=== PATIENT | female | born 1980 | race Caucasian/White ===

== ENCOUNTER 2021-04-08 13:25 | Emergency (ER) | payer OTHER, SELFPAY ==
[2021-04-08 13:37] VITALS: BP 104/70; PULSE 88; RESP 16; TEMP 36.9; O2SAT 98; BMI 29.0
[2021-04-08 14:37] LABS: COVID-19 Test Positive (Negative); IDNOW Serial# 9DD0AD1C
--- NOTE | 2021-04-08 14:50 | ED_ITS ---
HPI - General Adult General Chief complaint: Upper Respiratory Symptoms Stated complaint: cough Time Seen by Provider: 04/08/21 14:00 History of Present Illness HPI narrative: Patient's main complaint is runny nose and mild cough for 2-3 days, no shortness of breath Patient also complains of left-sided low back pain worse with movement time several months Related Data Previous Rx's Medication Instructions Recorded cyclobenzaprine 5 mg tablet 5 mg PO TID PRN #14 tab 04/08/21 ibuprofen 600 mg tablet 600 mg PO Q6H PRN #20 tab 04/08/21 Allergies Allergy/AdvReac Type Severity Reaction Status Date / Time No Known Allergies Allergy Verified 04/08/21 13:40 Review of Systems Review of Systems: Positive for runny nose and cough for 2-3 days Also positive for low back pain times months worse with movement Negatives are no fever no chills no dizziness no fainting no feeling faint no headache no neck pain no stiff neck no numbness weakness or tingling no chest pain no shortness of breath no abdominal pain no nausea vomiting or diarrhea, no dysuria no incontinence no changes to bowel or bladder no skin rash no muscle weakness no loss of sensation Yes all other systems are reviewed and are negative PMFSH Past Medical History Source: nursing notes reviewed Medical History (Updated 04/09/21 @ 00:02 by Jacky Arauz) Arthritis Asthma Social History Social History Advance Directives: No Advance Directives Information Provided: No Physical Exam Vital Signs: Vital Signs: Last Vital Signs Temp 98.4 F 04/08/21 13:37 Pulse 88 04/08/21 13:37 Resp 16 04/08/21 13:37 BP 104/70 04/08/21 13:37 Pulse Ox 98 04/08/21 13:37 Body Mass Index 29.0 General appearance no acute distress The head is normocephalic atraumatic The pharynx is clear with no redness swelling or exudate The neck is supple Chest clear to auscultation bilateral Heart no murmur Abdomen soft nontender The back had lower lumbar paraspinal tenderness, no bony tenderness no CVA tenderness, pain is reproduced with movement, the skin was normal Extremities full range of motion x4 Neuro no focal motor or sensory deficit Skin no rash Course Course Course Narrative: Well-appearing patient tested positive for COVID, no shortness of breath or difficulty breathing, tolerates p.o. The patient's ongoing low back pain with movement had no evidence of any neurologic deficit no changes to bowel or bladder no fever and is discharged with Motrin and muscle relaxer for musculoskeletal back pain and advised to foll ow with primary doctor Medical Decision Making Lab Data Labs: Lab Results 04/08/21 Range/Units 14:15 COVID-19 ([facility]) Positive A (Negative) COVID-19 Clin Com See Note Discharge Plan Discharge Clinical Impression: COVID-19, Back pain Patient Disposition: Home, Self-Care Additional Instructions: COVID testing was positive Be careful to wear mask and keep a distance from others Return to the ER any time any worse condition or any concerns The back pain is probably from inflamed muscles in her back, you can use Motrin if needed and if you feel the back is cramping you can try the muscle relaxer Follow with primary doctor when you have recovered from COVID for further evaluation and possible physical therapy Prescriptions: New ibuprofen 600 mg tablet 600 mg PO Q6H PRN (Reason: pain) Qty: 20 RF: 0 cyclobenzaprine 5 mg tablet 5 mg PO TID PRN (Reason: muscle spasm) Qty: 14 RF: 0 Interventions: ED Discharge Assessment Last Done: 04/08/21 15:01 Discharge Date/Time: 04/08/21 15:02
== END 2021-04-08 15:02 | disposition home or self-care (01) ==
PROVIDERS: Physician Assistant Medical; Emergency Provider Internal Medicine; PCP Family Medicine
DX: U07.1 COVID-19 (principal)
CPT/HCPCS: 36415; 87635; 99283

== ENCOUNTER 2021-08-23 13:54 | Emergency (ER) | payer OTHER, SELFPAY ==
[2021-08-23 15:05] VITALS: BP 129/87; PULSE 83; RESP 18; TEMP 36.6; O2SAT 98; BMI 28.3
--- NOTE | 2021-08-23 15:37 | ED_ITS ---
HPI - URI/Sore Throat General Chief Complaint: Upper Respiratory Symptoms Stated Complaint: sore throat cough Time Seen by Provider: 08/23/21 15:37 Source: patient and family Mode of arrival: ambulatory Limitations: language barrier (Azeri-speaking) History of Present Illness HPI Narrative: 41-year-old female who is not vaccinated to COVID-19 presenting to the ED with her sons and her daughter her son just tested positive for COVID. Her daughter and her other son do not have any symptoms. She reports body aches, sore throat, dry cough, nasal congestion/rhinorrhea, sore throat and resolved nausea/vomiting/diarrhea that occurred 3 days ago. She reports she is now tolerating p.o.. She denies any other symptoms. MD elicited complaint: cough, sore throat, rhinorrhea and nasal congestion Onset (ago): day(s) (2) Consistency: constant and progressively worsening Severity: mild Description of mucous: clear, watery and yellow Able to tolerate fluids by mouth: Yes Exacerbating factors: swallowing Relieving factors: nothing Context: sick contacts (Patient recently traveled with her family to [place] and her son just tested positive to COVID) and recent travel Associated symptoms: other (Patient reports approximately 3 days ago she had nausea/vomiting/diarrhea which has resolved and she is now tolerating p.o.) Treatments prior to arrival: none Related Data Previous Rx's Medication Instructions Recorded cyclobenzaprine 5 mg tablet 5 mg PO TID PRN #14 tab 04/08/21 ibuprofen 600 mg tablet 600 mg PO Q6H PRN #20 tab 04/08/21 azithromycin 250 mg tablet See Rx Instructions .ROUTE 08/23/21 .COMPLEX #6 tab Allergies Allergy/AdvReac Type Severity Reaction Status Date / Time No Known Allergies Allergy Verified 08/23/21 15:05 Review of Systems Review of Systems: Constitutional : Positive chills/fatigue/malaise No Weight loss, No Fever, No Night Sweats ENT/Mouth : Positive sore throat/nasal congestion/rhinorrhea, No Hearing loss, No Sinus Pain, No Hoarseness, No Swallowing Difficulty Eyes: No Eye Pain, No Swelling, No Redness, No Foreign Body, No Discharge, No Vision Changes Cardiovascular : No Chest Pain, No SOB, No Dyspnea on Exertion, No Orthopnea, No Edema, No Palpitations Respiratory : Positive Cough, No Sputum, No Wheezing, No Smoke Exposure, No Dyspnea Gastrointestinal : No Nausea, No Vomiting, No Diarrhea, No Constipation, No abdominal Pain, No Hematochezia, No Melena Genitourinary : no irregular bleeding, No Dysuria, No Urinary Frequency, No Hematuria, No Urinary Incontinence, No Urgency, No Flank Pain, No Urinary Flow Changes, No Hesitancy Musculoskeletal : No joint pain, positive Myalgias, No Joint Swelling Skin : No Skin Lesions, No rash Neuro : No Weakness, No Numbness, No Paresthesias, No Loss of Consciousness, No Dizziness, No Headache Psych : No Anxiety/Panic, No Depression, No SI/HI/AH/VH, No Social Issues, Heme/Lymph: No Bruising, No Bleeding,No Lymphadenopathy Endocrine : No Polyuria, No Polydipsia, No Temperature Intolerance Yes all other systems are reviewed and are negative [facility] Past Medical History Attestation statement: The following information was validated with the patient. Medical History Arthritis Asthma Social History Social History Advance Directives: No Advance Directives Information Provided: No Patient : No Physical Exam Vital Signs: Vital Signs: Last Vital Signs Temp 97.8 F 08/23/21 15:05 Pulse 83 08/23/21 15:05 Resp 18 08/23/21 15:05 BP 129/87 08/23/21 15:05 Pulse Ox 98 08/23/21 15:05 BMI result Body Mass Index 28.3 vital signs have been reviewed as normal and appeared to be correct. Blood pressure normal. Heart rate normal. Respiration rate normal. Temperature normal. Oxygen saturation normal. Appearance: Alert. Oriented X3. No acute distress. Head: Normal external exam. Normocephalic. Atraumatic. Eyes: PERRLA. EOMI. Conjunctiva and sclera normal. Eyelids normal. ENT: EAC normal. TM's Normal. Pharynx normal. Uvula midline. Moist mucous membranes. No trismus noted. No drooling noted. No muffled voice noted. Neck: Normal inspection. Neck supple. FROM. No adenopathy. Thyroid Normal. No meningeal signs. No neck mass noted. CVS: Normal heart rate and rhythm. Heart sound normal. Pulses normal throughout. No murmurs/rales/gallops. Respiratory: No respiratory distress. Painless inspiration. Breath sounds normal. No wheezes/rales/rhonchi noted. Chest nontender. No accessory muscle usage noted or decreased air movement noted. Abdomen: Soft and nontender. Bowel sounds normal in all 4 quadrants. No distention noted. No organomegaly noted. No visible injury noted. Back: Full range of motion noted. No rashes/lesion/induration/fluctuance or signs of infection noted. Skin: Skin warm and dry. Normal skin color. Normal skin turgor. No rashes/lesions/lacerations noted. Extremities: Extremities exhibit normal range of motion. Extremities nontender. Neuro: Oriented X 3. No motor deficit. No sensory deficit. Reflexes normal. Normal steady gait. No focal neuro deficits noted. Vascular: + radial pulses/+ 2 distal pedal pulses/+2 dorsalis pedis b/l. Normal cap refill. No cyanosis noted to upper extremity nails and lower extremity toes nails. Course Course Course Narrative: 41-year-old female came out negative for COVID although her son tested positive and she recently traveled and has symptoms therefore explained to the patient that most likely she had a false negative. Will DC home with instructions to follow CDC guidelines to self isolate and to return if any new or worsening symptoms. Patient understands agrees with this plan. MDM - URI/Sore Throat Medical Records Attestation: I reviewed the patient's medical records. Lab Data Attestation: I reviewed the patient's lab results. Labs: Lab Results 08/23/21 Range/Units 15:31 COVID-19 ([facility]) Negative (Negative) COVID-19 Clin Com See Note Discharge Plan Discharge Clinical Impression: Acute viral syndrome, Close exposure to 2019-nCoV Patient Disposition: Home, Self-Care Instructions: Viral Syndrome (ED), COVID-19 (Coronavirus Disease 2019) (ED) Additional Instructions: Please self isolate per CDC guidelines. Return if any new or worsening symptoms. Monitor oxygen levels. Prescriptions: New azithromycin 250 mg tablet See Rx Instructions .ROUTE .COMPLEX Qty: 6 RF: 0 No Action ibuprofen 600 mg tablet 600 mg PO Q6H PRN (Reason: pain) Qty: 20 RF: 0 cyclobenzaprine 5 mg tablet 5 mg PO TID PRN (Reason: muscle spasm) Qty: 14 RF: 0 Referrals: Jamir Zapien MD [Primary Care Provider] - 2 days Stand Alone Forms: Work/School Release Print Language: Azeri
[2021-08-23 15:53] LABS: COVID-19 Test Negative (Negative); IDNOW Serial# 9DD0AD1C
== END 2021-08-23 16:05 | disposition home or self-care (01) ==
PROVIDERS: Emergency Provider Emergency Medicine; PCP Internal Medicine
DX: B34.9 Viral infection, unspecified (principal); J45.909 Unspecified asthma, uncomplicated; Z20.822 Contact with and (suspected) exposure to COVID-19
CPT/HCPCS: 87635; 99283

== ENCOUNTER 2022-01-07 20:58 | Emergency (ER) | payer OTHER, SELFPAY ==
--- NOTE | ~2022-01-07 | XR_ITS ---
EXAMINATION: XR CHEST CLINICAL INFORMATION: Asthma COMPARISON: 07/23/2016 TECHNIQUE: Frontal view of the chest was obtained. FINDINGS: The lungs are well expanded. There is no focal consolidation, edema, or effusion. No pneumothorax. The cardiomediastinal silhouette is within normal limits. No acute osseous abnormality. XR/XR chest 1V IMPRESSION: Clear lungs.
[2022-01-07 21:01] VITALS: BP 122/80; PULSE 86; RESP 20; TEMP 37.2; O2SAT 99; BMI 28.1
--- NOTE | 2022-01-07 21:34 | ED.ASTHMA ---
HPI - Asthma General Chief Complaint: Asthma Stated Complaint: Asthma Time Seen by Provider: 01/07/22 21:34 Source: patient Mode of arrival: ambulatory Limitations: no limitations History of Present Illness HPI Narrative: Patient with history of asthma been coughing wheezing for last 2 days also has some running nose body aches using her inhaler without much relief no fever no chills Related Data Previous Rx's Medication Instructions Recorded cyclobenzaprine 5 mg tablet 5 mg PO TID PRN #14 tab 04/08/21 ibuprofen 600 mg tablet 600 mg PO Q6H PRN #20 tab 04/08/21 azithromycin 250 mg tablet See Rx Instructions .ROUTE 08/23/21 .COMPLEX #6 tab albuterol sulfate 90 mcg/actuation 2 puff INHALATION Q4-6H PRN #8.5 g 01/07/22 aerosol inhaler (ProAir HFA) codeine 10 mg-guaifenesin 100 mg/5 10 ml PO Q6H PRN #237 ml 01/07/22 mL oral liquid oseltamivir 75 mg capsule (Tamiflu) 75 mg PO BID 5 Days #10 cap 01/07/22 prednisone 20 mg tablet 40 mg PO DAILY #10 tab 01/07/22 Allergies Allergy/AdvReac Type Severity Reaction Status Date / Time No Known Allergies Allergy Verified 01/07/22 21:01 Review of Systems Review of Systems: Yes all other systems are reviewed and are negative [facility] Past Medical History Medical History Arthritis Asthma Social History Social History Advance Directives: No Advance Directives Information Provided: No Physical Exam Vital Signs: Vital Signs: Last Vital Signs Temp 98.1 F 01/08/22 00:03 Pulse 86 01/08/22 00:03 Resp 18 01/08/22 00:03 BP 109/70 01/08/22 00:03 Pulse Ox 97 01/08/22 00:03 BMI result Body Mass Index 28.1 Appearance: Alert. Oriented X3. No acute distress. ENT: Pharynx normal. Oral Mucosa moist, clear rhinorrhea Neck: Normal inspection. Neck supple. CVS: Normal heart rate and rhythm. Pulses normal. Respiratory: No respiratory distress. Equal air entry bilateral, better prolonged expiration with wheezing no crackles Abdomen: Soft and nontender. Bowel sounds are present, no mass palpable, no CVA tenderness Skin: Skin warm and dry. Normal skin color. Normal skin turgor. Extremities: No lower extremity edema. No calf tenderness Neuro: Oriented X 3. MDM - Asthma MDM Narrative Medical decision making narrative: Patient with asthma serology showed influenza A discharge patient on Tamiflu prednisone andinhaler Lab Data Attestation: I reviewed the patient's lab results. Labs: Lab Results 01/07/22 01/07/22 01/07/22 Range/Units 21:06 21:06 23:22 Urine Color YELLOW Urine Appearance CLEAR Urine pH 6.0 (5.0-8.0) Ur Specific [place] <= 1.005 (1.005-1.025) Urine Protein NEG (NEG-TRACE) MG/DL Urine Glucose (UA) NEG (NEG) MG/DL Urine Ketones NEG (NEG) MG/DL Urine Blood NEG (NEG) Urine Nitrite NEG (NEG) Ur Leukocyte Esterase NEG (NEG) COVID-19 ([facility]) Negative (Negative) COVID-19 Clin Com See Note Influenza Type A ([facility]) Positive A (Negative) Influenza Type B ([facility]) Negative (Negative) Influenza A & B Note See Note Discharge Plan Discharge Clinical Impression: Asthma with acute exacerbation, Influenza A Patient Disposition: Home, Self-Care Instructions: Asthma (ED), Influenza (ED) Additional Instructions: Use your inhaler 2 puffs every 4-6 hours as needed Prednisone as prescribed Tamiflu as prescribed Social distancing Follow with PCP if not better Prescriptions: New prednisone 20 mg tablet 40 mg PO DAILY Qty: 10 0RF codeine-guaifenesin 10-100 mg/5 mL liquid 10 ml PO Q6H PRN (Reason: cough) Qty: 237 0RF albuterol sulfate [ProAir HFA] 90 mcg/actuation HFA aerosol inhaler 2 puff inhalation Q4-6H PRN (Reason: Wheezing) Qty: 8.5 0RF oseltamivir [Tamiflu] 75 mg capsule 75 mg PO BID 5 Days Qty: 10 0RF No Action ibuprofen 600 mg tablet 600 mg PO Q6H PRN (Reason: pain) Qty: 20 0RF cyclobenzaprine 5 mg tablet 5 mg PO TID PRN (Reason: muscle spasm) Qty: 14 0RF Rx Instructions: This medication may cause drowsiness no driving for 8 hours after taking azithromycin 250 mg tablet See Rx Instructions .ROUTE .COMPLEX Qty: 6 0RF Rx Instructions: take 500 mg today (day 1), then 250 mg for 4 days (days 2-5) Stand Alone Forms: Work/School Release Interventions: ED Discharge Assessment Last Done: 01/08/22 00:04 Discharge Date/Time: 01/08/22 00:05 Print Language: Venezuelan
[2022-01-07 21:35] LABS: COVID-19 Test Negative (Negative); IDNOW Serial# 08D9AD1C; Influenza A Positive (Negative); Influenza B2 Negative (Negative)
[2022-01-07 21:36] VITALS: BP 168/140; PULSE 93; RESP 20; TEMP 36.8; O2SAT 95
[2022-01-07] MEDS: guaiFEN/Codeine SF 200/20/10ML 10 ML LIQUID PO (21:46)
[2022-01-07] MEDS: predniSONE 20 MG TABLET 40 MG PO (21:46)
[2022-01-07] MEDS: Oseltamivir Phosphate 75 MG CAPSULE PO (21:46)
[2022-01-07] MEDS: Albuterol/Iprat 2.5/0.5MG 3 ML AMPUL.NEB INHALE (22:06)
[2022-01-07 22:10] VITALS: BP 90/59; PULSE 75; RESP 16; TEMP 36.6; O2SAT 100
[2022-01-07 23:30] LABS: Appearance Urine CLEAR; Color Urine YELLOW; Glucose Urine UA NEG (NEG); Leukocyte Esterase Urine NEG (NEG); Nitrite Urine NEG (NEG); Specific Gravity - Urine <= 1.005 (1.005-1.025); Urine Blood NEG (NEG); Urine Ketones NEG (NEG); Urine Protein NEG (NEG-TRACE)
[2022-01-08 00:03] VITALS: BP 109/70; PULSE 86; RESP 18; TEMP 36.7; O2SAT 97
== END 2022-01-08 00:05 | disposition home or self-care (01) ==
PROVIDERS: Emergency Provider Internal Medicine; PCP Family Medicine
DX: J10.1 Influenza due to other identified influenza virus with other respiratory manifestations (principal); J45.901 Unspecified asthma with (acute) exacerbation; Z20.822 Contact with and (suspected) exposure to COVID-19
CPT/HCPCS: 71045; 81003; 87502; 87635; 99284

== ENCOUNTER 2022-09-29 18:28 | Emergency (ER) | payer OTHER, SELFPAY ==
--- NOTE | ~2022-09-29 | XR_ITS ---
EXAMINATION: XR CHEST CLINICAL INFORMATION: Cough and shortness of breath COMPARISON: Chest x-ray 01/07/2022 TECHNIQUE: 2 views of the chest were obtained. FINDINGS: The lungs are clear. No airspace consolidation, pleural effusion, or pneumothorax. The cardiomediastinal silhouette is within normal limits. No acute osseous injury. XR/XR chest 2V IMPRESSION: No acute pulmonary process.
[2022-09-29 18:33] VITALS: BP 102/61; PULSE 108; RESP 20; TEMP 36.2; O2SAT 98; BMI 31.1
--- NOTE | 2022-09-29 18:36 | ECG_ITS ---
Test Reason : SHORT OF BREATH Blood Pressure : / mmHG Vent. Rate : 085 BPM Atrial Rate : 085 BPM P-R Int : 128 ms QRS Dur : 078 ms QT Int : 366 ms P-R-T Axes : 066 038 049 degrees QTc Int : 435 ms Normal sinus rhythm Normal ECG No previous ECGs available Referred By: Tiffanie Nogueira Electronically Signed By:SHARAN MIGUEL MD
--- NOTE | 2022-09-29 18:36 | ED.SOB ---
HPI - SOB/Dyspnea General Chief Complaint: Dyspnea Stated Complaint: Diff Breathing/ Cough Time Seen by Provider: 09/29/22 18:40 Source: patient and family Mode of arrival: ambulatory Limitations: language barrier History of Present Illness HPI Narrative: 42 year female pmh asthma, arthritis who is presents to the ED accompanied by her daughter with a two day history of increased dry cough, chest tightness with sob/wheezing. The patient reports she has a history of asthma and she is not getting any relief with home meds. She is currently using albuterol inhaler, nebulizers and no symptomatic relief. She denies fever, chills, night sweats, nausea/vomiting, abdominal pain, dyspnea on exertion, orthopnea, palpitations, paresthesias, lower extremity edema or calf tenderness, recent travel or sick contacts or others with similar symptoms or any other symptoms complaints or concerns at this time. MD elicited complaint: shortness of breath, cough, pain with inspiration and asthma attack Pertinent past history: asthma Onset (ago): day(s) (2) Timing: constant and progressively worsening Severity: moderate Exacerbating factors: coughing, inspiration, talking and deep breaths Relieving factors: nothing Known history of: asthma Associated symptoms: chest pain (Chest tightness she denies actual chest pain), pain with inspiration, cough and wheezing Treatment prior to arrival: bronchodilator Related Data Home oxygen amount: none Previous Rx's Medication Instructions Recorded cyclobenzaprine 5 mg tablet 5 mg PO TID PRN muscle spasm #14 04/08/21 tabs ibuprofen 600 mg tablet 600 mg PO Q6H PRN pain #20 tabs 04/08/21 azithromycin 250 mg tablet See Rx Instructions PO .COMPLEX #6 08/23/21 tabs albuterol sulfate 90 mcg/actuation 2 puff inhalation Q4-6H PRN 01/07/22 aerosol inhaler (ProAir HFA) Wheezing #8.5 grams codeine 10 mg-guaifenesin 100 mg/5 10 ml PO Q6H PRN cough #237 mL 01/07/22 mL oral liquid oseltamivir 75 mg capsule (Tamiflu) 75 mg PO BID 5 days #10 caps 01/07/22 prednisone 20 mg tablet 40 mg PO DAILY #10 tabs 01/07/22 albuterol sulfate 0.63 mg/3 mL 0.63 mg (3 mL) inhalation QID PRN 09/29/22 solution for nebulization shortness of breath or wheezing #75 mL albuterol sulfate 90 mcg/actuation 1 inh inhalation QID PRN shortness 09/29/22 aerosol inhaler of breath or wheezing #8.5 grams azithromycin 250 mg tablet See Rx Instructions PO .COMPLEX #6 09/29/22 tabs codeine 10 mg-guaifenesin 100 mg/5 5 ml PO Q6H PRN cold symptoms #120 09/29/22 mL oral liquid (Guaifenesin AC) mL prednisone 20 mg tablet 40 mg PO DAILY inflammation 5 days 09/29/22 #10 tabs Allergies Allergy/AdvReac Type Severity Reaction Status Date / Time No Known Allergies Allergy Verified 01/07/22 21:01 Review of Systems Review of Systems: Constitutional : No Fever, No Chills, No Night Sweats, No Fatigue, No Malaise ENT/Mouth : No Ear Pain, No Nasal Congestion, No Sinus Pain, No sore throat, No Rhinorrhea Eyes: No Eye Pain, No Swelling, No Redness, No Foreign Body, No Discharge, No Vision Changes Cardiovascular : No Chest Pain only chest tighness per patient, + SOB, No Dyspnea on Exertion, No Orthopnea, No Palpitations Respiratory : + dry Cough, No Sputum, + Wheezing, + Dyspnea Gastrointestinal : No Nausea, No Vomiting, No Diarrhea, No Constipation, No abdominal Pain, No Hematochezia, No Melena Genitourinary : No Dysuria, No Urinary Frequency, No Urinary Incontinence, No Urgency, No Flank Pain Musculoskeletal : No joint pain, No Myalgias Skin : No lacerations Neuro : No Focal weakness, no general weakness, No Numbness, No Paresthesias, No Loss of Consciousness, No Dizziness, No Headache Yes all other systems are reviewed and are negative [facility] Past Medical History Attestation statement: The following information was validated with the patient. Source: old records reviewed and nursing notes reviewed Medical History Arthritis Asthma Social History Social History Advance Directives: No Advance Directives Information Provided: No Physical Exam Vital Signs: Vital Signs: Last Vital Signs Temp 97.2 F 09/29/22 18:33 Pulse 99 09/29/22 20:08 Resp 28 H 09/29/22 20:08 BP 102/61 09/29/22 18:33 Pulse Ox 98 09/29/22 20:08 O2 Del Method 09/29/22 20:08 BMI result Body Mass Index 31.1 vital signs have been reviewed Blood pressure normal. Heart rate 108. Respiration normal. Oxygen saturation normal. Appearance: Alert. Oriented X3. In acute respiratory distress otherwise no other acute distress. Head: Normal external exam. Normocephalic. Atraumatic. Eyes: PERRLA. EOMI. Conjunctiva and sclera normal. Eyelids normal. ENT: EAC normal. TM's Normal. Pharynx normal. Uvula midline. Moist mucous membranes. No trismus noted. No drooling noted. No muffled voice noted. No stridor noted. Patient tolerating secretions well. Neck: Normal inspection. Neck supple. FROM. No adenopathy. Thyroid Normal. No meningeal signs. No neck mass noted. CVS: Regular rate and rhythm. Heart sound normal. Pulses normal throughout. No murmurs/rales/gallops. Respiratory: In acute respiratory distress with decreased breath sounds and inspiratory and expiratory wheezing throughout. No rales/rhonchi noted. Chest is nontender. She is using some accessory muscle usage. No tracheal tugging or abdominal retractions noted. Chest is nontender. No signs of trauma. No crepitus is noted. Normal chest excursions noted. Abdomen: Soft and nontender. Bowel sounds normal in all 4 quadrants. No distention noted. No organomegaly noted. No visible injury noted. Back: No CVA tenderness. Full range of motion noted. No rashes/lesion/induration/fluctuance or signs of infection noted. Skin: Skin warm and dry. Normal skin color. Normal skin turgor. No rashes/lesions/lacerations noted. Extremities: No lower extremity edema. Extremities exhibit normal range of motion. Extremities nontender. Neuro: Oriented X 3. No motor deficit. No sensory deficit. Reflexes normal. Normal steady gait. No focal neuro deficits noted. Vascular: + radial pulses/+ 2 distal pedal pulses/+2 dorsalis pedis b/l. Normal cap refill. No cyanosis noted to upper extremity nails and lower extremity toes nails. Course Course Course Narrative: 42 year female with a history of asthma presents with a two day history of chest tightness, sob, and wheezing, no relief with home meds. Patient presentation and symptoms point toward asthma with acute exacerbation. Rule out virus as possible trigger. Plan: Labs, [id number], RSV, Influenza A/B Chest x-ray Albuterol Sulfate (Nebulization) 1 hour long Solumedrol 125 mg IV Magnesium Sulfate 2 g IV Then re-evaluate Reevaluation(s) Reevaluation #1: CBC: Eos% 4.1 - all other lab values within normal range CMP: BUN 7 - all other lab values within normal range SARS-CoV-2, RSV, Influenza A/B - Negative Time: 18:53 Reevaluation #2: Chest x-ray: FINDINGS: The lungs are clear. No airspace consolidation, pleural effusion, or pneumothorax. The cardiomediastinal silhouette is within normal limits. No acute osseous injury. XR/XR chest 2V IMPRESSION: No acute pulmonary process. Plan: Reviewed lab and imaging results with the patient. The patient is feeling much better and would like to be DC home. I did consider admission discussed this with the patient although patient reports she feels much better and will return if she feels new or worsening symptoms. Recommend the patient take albuterol for nebulization and aerosol inhaler, Azithromycin, Prednisone, Robitussin with codeine. Will DC home the patient understands to return if any new or worsening symptoms. Patient understands and agrees with this plan. Time: 19:00 Medications Administered Discontinued Medications Generic Name Dose Route Start Last Admin Trade Name Freq PRN Reason Stop Dose Admin Albuterol Sulfate 10 mg 09/29/22 18:40 09/29/22 19:22 Albuterol Sulfate (0.083%) 2.5 Mg/3 Ml Vial.Neb INHALE 09/29/22 18:41 10 mg ONCE ONE Administration Magnesium Sulfate 2 gm in 50 mls @ 25 mls/hr 09/29/22 18:40 09/29/22 20:09 Magnesium Sulfate/H2o IV 09/29/22 20:39 Infused ONCE ONE Infusion Methylprednisolone Sodium Succinate 125 mg 09/29/22 18:40 09/29/22 19:07 Methylprednisolone Sod Succ 125 Mg/2 Ml Vial IVPUSH 09/29/22 18:41 125 mg ONCE ONE Administration Medical Decision Making Admission/Observation Consideration of admission/observation: Escalation of care including admission/observation considered (I did discuss admission with the patient although she reports she feels better would like to go) Lab Data MDM Lab Attestation statement: I reviewed the patient's lab results. 09/29/22 18:53 09/29/22 18:53 Labs: Lab Results 09/29/22 09/29/22 09/29/22 Range/Units 18:53 18:53 18:53 WBC 7.2 (4.8-10.8) X10*3/uL RBC 4.61 (4.20-5.50) X10*6/uL Hgb 13.0 (12.0-16.0) g/dl Hct 39.1 (37.0-47.0) % MCV 84.8 (80.0-98.0) fL MCH 28.2 (27.0-33.0) pg MCHC 33.2 (31.0-35.0) g/dl RDW 15.9 (11.0-16.0) % Plt Count 277 (160-400) X10*3/uL MPV 12.0 (9.4-12.3) fL Immature Gran % (Auto) 0.3 (0.0-0.4) % Neut % (Auto) 51.9 (45-73) % Lymph % (Auto) 34.2 (20-40) % [place] % (Auto) 8.9 (2-11) % Eos % (Auto) 4.1 H (0-4) % Baso % (Auto) 0.6 (0-2) % Lymph # (Auto) 2.5 (1.2-4.9) X10*3/uL [place] # (Auto) 0.6 (0.1-1.2) X10*3/uL Eos # (Auto) 0.3 (0.0-0.4) X10*3/uL Baso # (Auto) 0.0 (0.0-0.2) X10*3/uL Abs Immat Gran (auto) 0.02 (0.00-0.03) X10*3/uL Absolute Neuts (auto) 3.8 (2.0-8.3) x10*3/uL Absolute Nucleated RBC 0.000 (0.0-0.012) X10*3/uL Nucleated RBC % (auto) 0.0 (0.0-0.2) /100WBC PT 12.6 (10.0-13.1) SEC INR 1.1 (0.9-1.1) Sodium 139 (135-145) mmol/L Potassium 3.7 (3.3-5.1) mmol/L Chloride 104 (96-108) mmol/L Carbon Dioxide 26 (22-29) mmol/L Anion Gap 13 (12-20) BUN 7 L (9-16) mg/dL Creatinine 0.76 (0.5-1.4) mg/dL Estim Creat Clear Calc 87.4 Estimated GFR > 60 Random Glucose 89 (60-115) mg/dL Calcium 9.0 (8.4-10.2) mg/dL Magnesium 1.7 (1.6-2.6) mg/dL Total Bilirubin 0.3 (0.0-1.0) mg/dL AST 16 (5-31) U/L ALT 15 (0-31) U/L Alkaline Phosphatase 55 (39-117) U/L Total Protein 6.6 (6.5-8.0) g/dL Albumin 4.1 (3.5-5.0) g/dL Influenza Type A (PCR) (Negative) Influenza Type B (PCR) (Negative) RSV RNA Qual (PCR) (Negative) SARS-CoV-2 RNA (RT-PCR) (Negative) 09/29/22 Range/Units 19:04 WBC (4.8-10.8) X10*3/uL RBC (4.20-5.50) X10*6/uL Hgb (12.0-16.0) g/dl Hct (37.0-47.0) % MCV (80.0-98.0) fL MCH (27.0-33.0) pg MCHC (31.0-35.0) g/dl RDW (11.0-16.0) % Plt Count (160-400) X10*3/uL MPV (9.4-12.3) fL Immature Gran % (Auto) (0.0-0.4) % Neut % (Auto) (45-73) % Lymph % (Auto) (20-40) % [place] % (Auto) (2-11) % Eos % (Auto) (0-4) % Baso % (Auto) (0-2) % Lymph # (Auto) (1.2-4.9) X10*3/uL [place] # (Auto) (0.1-1.2) X10*3/uL Eos # (Auto) (0.0-0.4) X10*3/uL Baso # (Auto) (0.0-0.2) X10*3/uL Abs Immat Gran (auto) (0.00-0.03) X10*3/uL Absolute Neuts (auto) (2.0-8.3) x10*3/uL Absolute Nucleated RBC (0.0-0.012) X10*3/uL Nucleated RBC % (auto) (0.0-0.2) /100WBC PT (10.0-13.1) SEC INR (0.9-1.1) Sodium (135-145) mmol/L Potassium (3.3-5.1) mmol/L Chloride (96-108) mmol/L Carbon Dioxide (22-29) mmol/L Anion Gap (12-20) BUN (9-16) mg/dL Creatinine (0.5-1.4) mg/dL Estim Creat Clear Calc Estimated GFR Random Glucose (60-115) mg/dL Calcium (8.4-10.2) mg/dL Magnesium (1.6-2.6) mg/dL Total Bilirubin (0.0-1.0) mg/dL AST (5-31) U/L ALT (0-31) U/L Alkaline Phosphatase (39-117) U/L Total Protein (6.5-8.0) g/dL Albumin (3.5-5.0) g/dL Influenza Type A (PCR) NEGATIVE (Negative) Influenza Type B (PCR) NEGATIVE (Negative) RSV RNA Qual (PCR) NEGATIVE (Negative) SARS-CoV-2 RNA (RT-PCR) NEGATIVE (Negative) Independent Interpretation I performed an independent interpretation of an: EKG (EKG normal sinus rhythm ventricular rate of 85 with a normal [place] interval normal QRS duration normal QT/QTC interval. No acute ischemic change are noted. No prior EKGs to compare to in our system at this time.) and Plain X-Ray (Chest x-ray reviewed by myself and negative for any acute processes. I discussed this with the patient she understands.) Radiology Impression Discussion of test interpretation with radiology: I have reviewed the radiologist's reading. Radiologist Impression: FINDINGS: The lungs are clear. No airspace consolidation, pleural effusion, or pneumothorax. The cardiomediastinal silhouette is within normal limits. No acute osseous injury. XR/XR chest 2V IMPRESSION: No acute pulmonary process. External Record Review External record reviewed: Other (I reviewed prior ED visits in our system) Prescription Management I considered prescription management with: Antibiotic (A Z-[place], prednisone, Robitussin with codeine, albuterol nebulizer and inhaler prescribed at this time) Chronic Conditions Patient?s care impacted by: Other (Asthma exacerbation) Critical Care Time Critical Care Time Critical Care Time: Yes Total Critical Care Time: 60 Attestation: I personally attest to this time spent taking care of the patient Discharge Plan Discharge Clinical Impression: Asthma with exacerbation Patient Disposition: Home, Self-Care Instructions: Asthma (ED) Prescriptions: New albuterol sulfate 0.63 mg/3 mL solution for nebulization 0.63 mg inhalation QID PRN (Reason: shortness of breath or wheezing) Qty: 75 0RF azithromycin 250 mg tablet See Rx Instructions .ROUTE .COMPLEX Qty: 6 0RF Rx Instructions: take 500 mg today (day 1), then 250 mg for 4 days (days 2-5) prednisone 20 mg tablet 40 mg PO DAILY 5 Days Qty: 10 0RF codeine-guaifenesin [Guaifenesin AC] 10-100 mg/5 mL liquid 5 ml PO Q6H PRN (Reason: cold symptoms) Qty: 120 0RF albuterol sulfate 90 mcg/actuation HFA aerosol inhaler 1 inh inhalation QID PRN (Reason: shortness of breath or wheezing) Qty: 8.5 0RF No Action ibuprofen 600 mg tablet 600 mg PO Q6H PRN (Reason: pain) Qty: 20 0RF cyclobenzaprine 5 mg tablet 5 mg PO TID PRN (Reason: muscle spasm) Qty: 14 0RF Rx Instructions: This medication may cause drowsiness no driving for 8 hours after taking azithromycin 250 mg tablet See Rx Instructions .ROUTE .COMPLEX Qty: 6 0RF Rx Instructions: take 500 mg today (day 1), then 250 mg for 4 days (days 2-5) prednisone 20 mg tablet 40 mg PO DAILY Qty: 10 0RF codeine-guaifenesin 10-100 mg/5 mL liquid 10 ml PO Q6H PRN (Reason: cough) Qty: 237 0RF albuterol sulfate [ProAir HFA] 90 mcg/actuation HFA aerosol inhaler 2 puff inhalation Q4-6H PRN (Reason: Wheezing) Qty: 8.5 0RF oseltamivir [Tamiflu] 75 mg capsule 75 mg PO BID 5 Days Qty: 10 0RF Referrals: Leslie Alaniz MD [Primary Care Provider] - 2 days Stand Alone Forms: Work/School Release Interventions: ED Discharge Assessment Last Done: 09/29/22 20:30 Discharge Date/Time: 09/29/22 20:31
[2022-09-29 18:58] LABS: MANUAL DIFF FLAG NO
[2022-09-29 19:04] LABS: INTERNATIONAL NORM RATIO 1.1 (0.9-1.1); Prothrombin Time 12.6 SEC (10.0-13.1)
[2022-09-29 19:05] LABS: Basophils Percent Auto 0.6 % (0-2); Eosinophils Absolute Auto 0.3 X10*3/uL (0.0-0.4); Eosinophils Percent Auto 4.1 % (0-4); Hematocrit 39.1 % (37.0-47.0); Imm Gran Abs Auto 0.02 X10*3/uL (0.00-0.03); Imm Gran Pct Auto 0.3 % (0.0-0.4); Lymphocytes Absolute Auto 2.5 X10*3/uL (1.2-4.9); Lymphocytes Percent Auto 34.2 % (20-40); Mean Corpuscular HGB Conc 33.2 g/dl (31.0-35.0); Mean Corpuscular Hemoglobin 28.2 pg (27.0-33.0); Mean Corpuscular Volume 84.8 fL (80.0-98.0); Monocytes Absolute Auto 0.6 X10*3/uL (0.1-1.2); Monocytes Percent Auto 8.9 % (2-11); Neutrophils Absolute Auto 3.8 x10*3/uL (2.0-8.3); Neutrophils Percent Auto 51.9 % (45-73); Platelet Count 277 X10*3/uL (160-400); Red Blood Count 4.61 X10*6/uL (4.20-5.50); Red Cell Distribution Width 15.9 % (11.0-16.0); White Blood Count 7.2 X10*3/uL (4.8-10.8)
[2022-09-29] MEDS: Magnesium Sulfate/H2O 2 GM/50 ML PIGGYBACK IV (19:07)
[2022-09-29] MEDS: methylPREDNISolone Sod Succ 125 MG/2 ML VIAL IVPUSH (19:07)
[2022-09-29 19:16] LABS: Alanine Aminotransferase 15 U/L (0-31); Albumin Level 4.1 g/dL (3.5-5.0); Alkaline Phosphatase 55 U/L (39-117); Anion Gap 13 (12-20); Aspartate Amino Transferase 16 U/L (5-31); Bilirubin Total 0.3 mg/dL (0.0-1.0); Blood Urea Nitrogen 7 mg/dL (9-16); Carbon Dioxide 26 mmol/L (22-29); Chloride 104 mmol/L (96-108); Creatinine Clr Calc Pharmacy 87.4; Estimated Glomerular Filt Rate > 60; Glucose Random 89 mg/dL (60-115); Magnesium 1.7 mg/dL (1.6-2.6); Potassium 3.7 mmol/L (3.3-5.1); Sodium 139 mmol/L (135-145); Total Protein 6.6 g/dL (6.5-8.0)
[2022-09-29] MEDS: Albuterol Sulfate (0.083%) 2.5 MG/3 ML VIAL.NEB 10 MG INHALE (19:22)
[2022-09-29 19:25] VITALS: PULSE 88; RESP 16; O2SAT 96
--- NOTE | 2022-09-29 19:47 | PC.NURSE ---
pt medicated per OCT pt currently utilizinf albuterol updraft. pt now speaking in full sentences, respirations even and unlabored. verbalizes that she is starting to feel better, awaiting imaging, [facility] call johnson within reach
[2022-09-29 19:59] LABS: Influenza A PCR NEGATIVE (Negative); Influenza B PCR NEGATIVE (Negative); Resp Syncy Virus RNA Qual PCR NEGATIVE (Negative); SARS COV2 PCR INHOUSE NEGATIVE (Negative)
--- NOTE | 2022-09-29 20:07 | PC.NURSE ---
pt oob to br without assistance sts that she feels much better, breath sounds clear 98% on RA, hr 98bpm
[2022-09-29 20:08] VITALS: PULSE 99; RESP 28; O2SAT 98
== END 2022-09-29 20:31 | disposition home or self-care (01) ==
PROVIDERS: Physician Assistant Medical; Emergency Provider Internal Medicine; PCP Family Medicine
DX: J45.901 Unspecified asthma with (acute) exacerbation (principal); Z20.822 Contact with and (suspected) exposure to COVID-19; Z20.828 Contact with and (suspected) exposure to other viral communicable diseases
CPT/HCPCS: 0241U; 36415; 71046; 80053; 83735; 85025; 85610; 93005; 94640; 96365; 96375; 99284; J2930; J3475

== ENCOUNTER 2024-02-07 14:44 | Emergency (ER) | payer OTHER, SELFPAY ==
--- NOTE | ~2024-02-07 | XR_ITS ---
EXAMINATION: XR CHEST CLINICAL INFORMATION: Shortness of breath COMPARISON: Chest x-ray on 09/29/2022 TECHNIQUE: 2 views of the chest were obtained. FINDINGS: No significant abnormality is noted involving the heart, lungs, mediastinum, bony thorax or soft tissues. XR/XR chest 2V IMPRESSION: Unremarkable examination.
[2024-02-07 14:50] VITALS: BP 138/84; PULSE 110; RESP 18; TEMP 36.6; O2SAT 99; BMI 29.6
--- NOTE | 2024-02-07 14:50 | ED_ITS ---
HPI - General Adult General Stated complaint: asthma Related Data Previous Rx's ?Medication ?Instructions ?Recorded cyclobenzaprine 5 mg tablet 5 mg PO TID PRN muscle spasm #14 04/08/21 tabs ibuprofen 600 mg tablet 600 mg PO Q6H PRN pain #20 tabs 04/08/21 azithromycin 250 mg tablet See Rx Instructions PO .COMPLEX #6 08/23/21 tabs albuterol sulfate 90 mcg/actuation 2 puff inhalation Q4-6H PRN 01/07/22 aerosol inhaler (ProAir HFA) Wheezing #8.5 grams codeine 10 mg-guaifenesin 100 mg/5 10 ml PO Q6H PRN cough #237 mL 01/07/22 mL oral liquid oseltamivir 75 mg capsule (Tamiflu) 75 mg PO BID 5 days #10 caps 01/07/22 prednisone 20 mg tablet 40 mg (2 x 20 mg) PO DAILY #10 tabs 01/07/22 albuterol sulfate 0.63 mg/3 mL 0.63 mg (3 mL) inhalation QID PRN 09/29/22 solution for nebulization shortness of breath or wheezing #75 mL albuterol sulfate 90 mcg/actuation 1 inh inhalation QID PRN shortness 09/29/22 aerosol inhaler of breath or wheezing #8.5 grams azithromycin 250 mg tablet See Rx Instructions PO .COMPLEX #6 09/29/22 tabs codeine 10 mg-guaifenesin 100 mg/5 5 ml PO Q6H PRN cold symptoms #120 09/29/22 mL oral liquid (Guaifenesin AC) mL prednisone 20 mg tablet 40 mg (2 x 20 mg) PO DAILY 09/29/22 inflammation 5 days #10 tabs Allergies Allergy/AdvReac Type Severity Reaction Status Date / Time No Known Allergies Allergy Verified 01/07/22 21:01 [facility] Past Medical History Medical History Arthritis Asthma Course Course Course Narrative: RME performed by Tami Looney PA-C. Patient is a 44 year old assigned female at presenting to the emergency department with asthma. Patient states over the last week she has had wheezing that has not gotten better. Detailed physical exam and review of systems are deferred to the emergency department clinician. Patient placed back in the waiting room pending room availability. Discharge Plan Discharge Prescriptions: No Action ibuprofen 600 mg tablet 600 mg PO Q6H PRN (Reason: pain) Qty: 20 0RF cyclobenzaprine 5 mg tablet 5 mg PO TID PRN (Reason: muscle spasm) Qty: 14 0RF Rx Instructions: This medication may cause drowsiness no driving for 8 hours after taking azithromycin 250 mg tablet See Rx Instructions .ROUTE .COMPLEX Qty: 6 0RF Rx Instructions: take 500 mg today (day 1), then 250 mg for 4 days (days 2-5) prednisone 20 mg tablet 40 mg PO DAILY Qty: 10 0RF codeine-guaifenesin 10-100 mg/5 mL liquid 10 ml PO Q6H PRN (Reason: cough) Qty: 237 0RF albuterol sulfate [ProAir HFA] 90 mcg/actuation HFA aerosol inhaler 2 puff inhalation Q4-6H PRN (Reason: Wheezing) Qty: 8.5 0RF oseltamivir [Tamiflu] 75 mg capsule 75 mg PO BID 5 Days Qty: 10 0RF albuterol sulfate 0.63 mg/3 mL solution for nebulization 0.63 mg inhalation QID PRN (Reason: shortness of breath or wheezing) Qty: 75 0RF azithromycin 250 mg tablet See Rx Instructions .ROUTE .COMPLEX Qty: 6 0RF Rx Instructions: take 500 mg today (day 1), then 250 mg for 4 days (days 2-5) prednisone 20 mg tablet 40 mg PO DAILY 5 Days Qty: 10 0RF codeine-guaifenesin [Guaifenesin AC] 10-100 mg/5 mL liquid 5 ml PO Q6H PRN (Reason: cold symptoms) Qty: 120 0RF albuterol sulfate 90 mcg/actuation HFA aerosol inhaler 1 inh inhalation QID PRN (Reason: shortness of breath or wheezing) Qty: 8.5 0RF Print Language: [place] Citizen
[2024-02-07] MEDS: Albuterol/Iprat 2.5/0.5MG 3 ML AMPUL.NEB INHALE (15:16)
[2024-02-07 15:18] VITALS: PULSE 110; RESP 20; O2SAT 97
[2024-02-07 15:37] LABS: Influenza A PCR NEGATIVE (Negative); Influenza B PCR NEGATIVE (Negative); Resp Syncy Virus RNA Qual PCR NEGATIVE (Negative); SARS COV2 PCR INHOUSE NEGATIVE (Negative)
--- NOTE | 2024-02-07 15:46 | ED_ITS ---
HPI - URI/Sore Throat General Chief Complaint: Upper Respiratory Symptoms Stated Complaint: asthma Time Seen by Provider: 02/07/24 15:19 Source: patient Mode of arrival: ambulatory Limitations: no limitations History of Present Illness ED Provider: Opal LESLIE Narrative: Patient is a 44-year-old female with history of asthma presenting to the emergency department with complaint of cough and shortness breath for the past week. States that she has a nebulizer as well as Ventolin inhaler at home which she has been using with little relief. Denies fevers. Denies any sore throat, body ache ear pain. Denies chest pain or palpitations. Denies known sick contacts. MD elicited complaint: cough Pertinent past history: asthma Onset (ago): week(s) Consistency: constant Able to tolerate fluids by mouth: Yes Exacerbating factors: exertion Relieving factors: nothing Treatments prior to arrival: other Related Data Previous Rx's ?Medication ?Instructions ?Recorded cyclobenzaprine 5 mg tablet 5 mg PO TID PRN muscle spasm #14 04/08/21 tabs ibuprofen 600 mg tablet 600 mg PO Q6H PRN pain #20 tabs 04/08/21 azithromycin 250 mg tablet See Rx Instructions PO .COMPLEX #6 08/23/21 tabs albuterol sulfate 90 mcg/actuation 2 puff inhalation Q4-6H PRN 01/07/22 aerosol inhaler (ProAir HFA) Wheezing #8.5 grams codeine 10 mg-guaifenesin 100 mg/5 10 ml PO Q6H PRN cough #237 mL 01/07/22 mL oral liquid oseltamivir 75 mg capsule (Tamiflu) 75 mg PO BID 5 days #10 caps 01/07/22 prednisone 20 mg tablet 40 mg (2 x 20 mg) PO DAILY #10 tabs 01/07/22 albuterol sulfate 0.63 mg/3 mL 0.63 mg (3 mL) inhalation QID PRN 09/29/22 solution for nebulization shortness of breath or wheezing #75 mL albuterol sulfate 90 mcg/actuation 1 inh inhalation QID PRN shortness 09/29/22 aerosol inhaler of breath or wheezing #8.5 grams azithromycin 250 mg tablet See Rx Instructions PO .COMPLEX #6 09/29/22 tabs codeine 10 mg-guaifenesin 100 mg/5 5 ml PO Q6H PRN cold symptoms #120 02/11/23 mL oral liquid (Guaifenesin AC) mL prednisone 20 mg tablet 40 mg (2 x 20 mg) PO DAILY 09/29/22 inflammation 5 days #10 tabs benzonatate 100 mg capsule 100 mg PO TID PRN cough #14 caps 02/07/24 prednisone 20 mg tablet 40 mg (2 x 20 mg) PO DAILY #10 tabs 02/07/24 Allergies Allergy/AdvReac Type Severity Reaction Status Date / Time No Known Allergies Allergy Verified 02/07/24 14:54 Review of Systems Review of Systems: As per HPI. Yes all other systems are reviewed and are negative Constitutional: Constitutional: Reports as per HPI [facility] Past Medical History Medical History Arthritis Asthma Social History Social History Advance Directives: No Advance Directives Information Provided: No Do you have a plan to hurt others: No Plan Physical Exam Vital Signs: Vital Signs: Last Vital Signs Temp 97.6 F 02/07/24 16:28 Pulse 92 02/07/24 16:28 Resp 18 02/07/24 16:28 BP 111/68 02/07/24 16:28 Pulse Ox 99 02/07/24 16:28 O2 Del Method Room Air 02/07/24 16:28 BMI result Body Mass Index 29.6 Vital signs have been reviewed and appear to be correct. Blood pressure normal. Heart rate mildly tachycardic. Respiratory rate normal. Temperature normal. Oxygen saturation normal. Const: General: cooperative, healthy appearing and no acute distress Orientation/consciousness: oriented to person, oriented to place, oriented to time and patient oriented x3 Limitations: no limitations HEENT: Head: Yes normocephalic and Yes atraumatic Ears: external ears normal General nose exam: Normal external nose present Face and sinus: Yes face symmetric Mouth: oropharynx normal and moist mucous membranes Throat: Yes uvula midline Eyes: Pupils: Equal, round and reactive pupils present Neck: Neck: Yes normal visual inspection and Yes supple Resp: Effort & Inspection: normal respiratory effort and able to speak in comp lete sentences Auscultation: wheezes expiratory wheezes and throughout Cardio: Rate: regular rate Rhythm: regular rhythm Heart sounds: S1 normal heart sound present and S2 normal heart sound present GI: Palpation (GI): Soft to palpation and nontender Auscultation: normoactive bowel sounds : General: Yes no CVA tenderness Back/Spine/Pelvis: Back: no CVA tenderness Skin: General skin exam: elasticity normal and turgor normal Neuro: General: oriented to person, oriented to place, oriented to time, patient oriented x3, moves all extremities, no focal motor deficits and CN's II- XI intact bilaterally Cranial nerves: Yes Equal, round and reactive pupils present Cognition (Neuro): normal cognition Extrem: General: Yes full ROM, Yes no pedal edema and Yes no calf tenderness Psych: Mental Status: mental status grossly normal Affect: normal affect Thought process: Normal thought process present Medications Administered Discontinued Medications Generic Name Dose Route Start Last Admin Trade Name Freq PRN Reason Stop Dose Admin Albuterol/Ipratropium 3 ml 02/07/24 15:13 02/07/24 15:16 Albuterol/Iprat 2.5/0.5mg 3 Ml Ampul.Neb INHALE 02/07/24 15:14 3 ml ONCE ONE Administration Benzonatate 100 mg 02/07/24 15:46 02/07/24 15:54 Benzonatate 100 Mg Capsule PO 02/07/24 15:47 100 mg ONCE ONE Administration Prednisone 60 mg 02/07/24 15:46 02/07/24 15:54 Prednisone 20 Mg Tablet PO 02/07/24 15:47 60 mg ONCE ONE Administration Medical Decision Making Medical Decision Making MDM Narrative: Patient is a 44-year-old female with history of asthma presenting to the emergency department with complaint of cough and shortness breath for the past week. On exam patient is awake, A+Ox3, slightly tachycardic, VS otherwise WNL, afebrile, normal neurological exam without focal deficits, physical exam findings as above. Given reported symptoms and physical exam findings, initial differential includes asthma exacerbation, viral illness, Covid, flu, RSV, bronchitis, pneumonia. Viral serology negative. X-ray notable for no evidence of pneumonia. My interpretation is in agreement with the radiologist's interpretation. Results discussed with patient and all questions answered. Will discharge home on course of prednisone and benzonatate. Patient states she has adequate albuterol for her nebulizer and inhaler at home. Instructed patient to follow-up with PCP. Return precautions discussed. Patient verbalized understanding of and agreement plan. Differential Diagnosis Differential Diagnoses: The differential diagnosis associated with the presentation includes As per [facility]. Admission/Observation Consideration of admission/observation: Escalation of care including admission/observation considered Patient would have been admitted to the hospital had their work up had any findings where hospital admission was appropriate and their clinical presentation warranted hospital admission. Lab Data [facility] Lab Attestation statement: I reviewed the patient's lab results. as per [facility] Labs: Lab Results 02/07/24 Range/Units 14:56 Influenza Type A (PCR) NEGATIVE (Negative) Influenza Type B (PCR) NEGATIVE (Negative) RSV RNA Qual (PCR) NEGATIVE (Negative) SARS-CoV-2 RNA (RT-PCR) NEGATIVE (Negative) Independent Interpretation I performed an independent interpretation of an: Plain X-Ray Interpretation: no evidence of pneumonia on chest xray Radiology Impression Discussion of test interpretation with radiology: I have reviewed the radiologist's reading. Radiologist Impression: XR/XR chest 2V IMPRESSION: Unremarkable examination. External Record Review External record reviewed: Inpatient record, Office record and Outpatient record Prescription Management I considered prescription management with: Other Discharge Plan Discharge Clinical Impression: Asthma exacerbation Patient Disposition: Home, Self-Care Instructions: Asthma (DC) Additional Instructions: You were evaluated in the emergency department today for cough, wheezing and shortness of breath. You are being treated for an asthma exacerbation with a short course of steroids to decrease inflammation. You are being prescribed benzonatate for cough which you can use every 8 hours as needed, PLEASE BE SURE TO KEEP THIS MEDICATION OUT OF THE REACH OF CHILDREN. Please follow-up with your primary care provider this week. Return to the emergency department if you develop worsening shortness of breath, difficulty breathing, chest pain, fever not improved with Tylenol or ibuprofen, or any other concerning symptoms. Prescriptions: New prednisone 20 mg tablet 40 mg PO DAILY Qty: 10 0RF benzonatate 100 mg capsule 100 mg PO TID PRN (Reason: cough) Qty: 14 0RF No Action ibuprofen 600 mg tablet 600 mg PO Q6H PRN (Reason: pain) Qty: 20 0RF cyclobenzaprine 5 mg tablet 5 mg PO TID PRN (Reason: muscle spasm) Qty: 14 0RF Rx Instructions: This medication may cause drowsiness no driving for 8 hours after taking azithromycin 250 mg tablet See Rx Instructions .ROUTE .COMPLEX Qty: 6 0RF Rx Instructions: take 500 mg today (day 1), then 250 mg for 4 days (days 2-5) prednisone 20 mg tablet 40 mg PO DAILY Qty: 10 0RF codeine-guaifenesin 10-100 mg/5 mL liquid 10 ml PO Q6H PRN (Reason: cough) Qty: 237 0RF albuterol sulfate [ProAir HFA] 90 mcg/actuation HFA aerosol inhaler 2 puff inhalation Q4-6H PRN (Reason: Wheezing) Qty: 8.5 0RF oseltamivir [Tamiflu] 75 mg capsule 75 mg PO BID 5 Days Qty: 10 0RF albuterol sulfate 0.63 mg/3 mL solution for nebulization 0.63 mg inhalation QID PRN (Reason: shortness of breath or wheezing) Qty: 75 0RF azithromycin 250 mg tablet See Rx Instructions .ROUTE .COMPLEX Qty: 6 0RF Rx Instructions: take 500 mg today (day 1), then 250 mg for 4 days (days 2-5) prednisone 20 mg tablet 40 mg PO DAILY 5 Days Qty: 10 0RF codeine-guaifenesin [Guaifenesin AC] 10-100 mg/5 mL liquid 5 ml PO Q6H PRN (Reason: cold symptoms) Qty: 120 0RF albuterol sulfate 90 mcg/actuation HFA aerosol inhaler 1 inh inhalation QID PRN (Reason: shortness of breath or wheezing) Qty: 8.5 0RF Print Language: Turkish
[2024-02-07] MEDS: Benzonatate 100 MG CAPSULE PO (15:54)
[2024-02-07] MEDS: predniSONE 20 MG TABLET 60 MG PO (15:54)
[2024-02-07 16:28] VITALS: BP 111/68; PULSE 92; RESP 18; TEMP 36.4; O2SAT 99
[2024-02-07 17:28] VITALS: BP 114/76; PULSE 87; RESP 20; TEMP 36.6; O2SAT 99
== END 2024-02-07 17:29 | disposition home or self-care (01) ==
PROVIDERS: Physician Assistant Medical; Emergency Provider Emergency Medicine; PCP Family Medicine
DX: J45.901 Unspecified asthma with (acute) exacerbation (principal); R05.9 Cough, unspecified; R06.02 Shortness of breath; Z03.818 Encounter for observation for suspected exposure to other biological agents ruled out
CPT/HCPCS: 0241U; 71046; 94640; 99284